=== PATIENT | female | born 1960 | race Caucasian/White ===

== ENCOUNTER 2022-12-18 12:31 | Emergency (ER) | payer OTHER ==
[~2022-12-18] VITALS: Ht 167.6 cm; Wt 97.7 kg
[2022-12-18 12:33] VITALS: BP 200/121; PULSE 83; RESP 16; TEMP 98; O2SAT 97
== END 2022-12-18 12:57 | disposition home or self-care (01) ==
LOC: ER 12:31
DX: S61.432A Puncture wound without foreign body of left hand, initial encounter (principal); W26.8XXA Contact with other sharp object(s), not elsewhere classified, initial encounter; Y93.89 Activity, other specified; Y92.89 Other specified places as the place of occurrence of the external cause; Y99.8 Other external cause status
CPT/HCPCS: 99281